=== PATIENT | female | born 1945 | race American Indian/Alaskan Native ===

== ENCOUNTER 2021-03-22 12:45 | Outpatient (CLI) | payer MEDICARE ==
--- NOTE | 2021-03-22 16:38 | MRI Report ---
PROCEDURE: Knee LT W/O INDICATIONS: LEFT KNEE PAIN TECHNIQUE: Noncontrast sagittal PD fast spin echo and T2 fast spin echo with fat saturation, sagittal 3-D gradie nt sequence with fat saturation; coronal T1 spin echo and PD fast spin echo with fat saturation, and axial PD fast spin echo with fat saturation through the knee. COMPARISON: None. FINDINGS: Image quality: Excellent. Menisci: The medial and lateral menisci demonstrate normal morphology and internal signal. The meni scal root ligaments appear intact. Cruciate ligaments: The anterior and posterior cruciate ligaments appear intact. Medial structures: Very low-grade proximal MCL sprain at its femoral insertion is seen. The posterior oblique ligament, semimembranosus tendon insertions, and oblique popliteal ligament, and meniscocaps ular junction appear intact. Visualized portions of the pes anserinus tendons appear normal. No abn ormal bursal fluid. Lateral structures: The lateral collateral ligament, long and short heads of the biceps femoris tend on appear intact. The popliteus tendon appears normal; the popliteofibular ligament appears intact. The posterosuperior and anteroinferior popliteomeniscal fascicles appear intact. The arcuate and fa bellofibular ligaments appear intact, around the lateral inferior geniculate artery. Iliotibial band appears normal. Anterior structures: Distal quadriceps tendinosis at its superior patella insertion is seen. Proximal patella tendinosis at its inferior patella insertion is also seen. Patellar alignment is normal. No femoral trochlear dysplasia or ventral trochlear prominence. No edema in the infrapatellar fat pad. Bones and cartilage: No bone marrow contusions or fractures. Mild to moderate tricompartmental osteo arthritis and chondromalacia more prominent in medial femoral tibial compartment is seen. Joint space: There is small amount of joint fluid. No Zhang's cyst. Normal appearing synovial plic ae are incidentally noted. IMPRESSION: 1. Mild to moderate tricompartmental osteoarthritis and chondromalacia more prominent in medial femor al tibial compartment. No fracture or dislocation. Small joint effusion. 2. Cruciate ligaments are intact. Very low-grade proximal MCL sprain at its femoral insertion. 3. Suggestion of distal quadriceps and proximal patella tendinosis at their respective patella insert ions. No full-thickness tendon rupture. 4. No evidence of focal meniscal tear. Reviewed by: Fredo Bundy MD on 03/22/2021 4:37 PM PDT Approved by: Fredo Bundy MD on 03/22/2021 4:37 PM PDT Station ID: [id number]
== END 2021-03-22 12:46 | disposition home or self-care (01) ==
LOC: DI 12:45
PROVIDERS: ATTEND Orthopaedic Surgery
DX: M17.12 Unilateral primary osteoarthritis, left knee (principal); M94.262 Chondromalacia, left knee; M25.462 Effusion, left knee; S83.412A Sprain of medial collateral ligament of left knee, initial encounter; M67.864 Other specified disorders of tendon, left knee

== ENCOUNTER 2021-09-07 08:00 | Outpatient (CLI) | payer MEDICARE ==
--- NOTE | 2021-09-07 15:59 | XRAY Report ---
PROCEDURE: Lumbar Spine 2 View INDICATIONS: LUMBAR RADICULOPATHY TECHNIQUE: 2 views of the lumbar spine were acquired. COMPARISON: None. FINDINGS: Bones: 5 [id number] vertebrae are present. There is mild grade 1 retrolisthesis of L1 on L2. M ild grade 1 anterolisthesis of L5 on S1. Multilevel disc space narrowing and endplate osteophyte form ation. Mild chronic wedging of L1. Bilateral L5-S1 pars interarticularis defects. Facet hypertrophy t hroughout the mid and lower lumbar spine. No acute vertebral body compression fractures. No suspicio us bony lesions. Soft tissues: Overlying bowel gas pattern is normal. No suspicious soft tissue calcifications. IMPRESSION: 1. Multilevel degenerative disc and facet disease. 2. Grade 1 isthmic spondylolisthesis at L5-S1. 3. Mild chronic L1 compression fracture. 4. No acute fracture. No osseous lesion. If symptoms and/or clinical suspicion for pathology continue , further assessment with repeat plain films, or advanced imaging (e.g., CT, MRI, or bone scan) is re commended for further assessment. Reviewed by: Rajan Dang MD on 09/07/2021 3:58 PM PDT Approved by: Rajan Dang MD on 09/07/2021 3:58 PM PDT Station ID: [id number]
== END 2021-09-07 23:59 ==
LOC: DI.S 08:00
PROVIDERS: ATTEND Emergency Medicine
DX: M47.26 Other spondylosis with radiculopathy, lumbar region (principal); M47.27 Other spondylosis with radiculopathy, lumbosacral region; M51.16 Intervertebral disc disorders with radiculopathy, lumbar region; M43.16 Spondylolisthesis, lumbar region

== ENCOUNTER 2023-03-18 13:00 | Outpatient (CLI) | payer MEDICARE ==
--- NOTE | 2023-03-18 15:47 | XRAY Report ---
PROCEDURE: Wrist 3 View RT INDICATIONS: RIGHT WRIST FRACTURE TECHNIQUE: 3 views of the wrist were acquired. COMPARISON: 03/11/2023 FINDINGS: Bones: Healing minimally displaced distal radius fracture. Similar appearance of minimally displaced ulnar styloid fracture. Mild degenerative changes at the base of the thumb. Soft tissues: No suspicious calcifications. IMPRESSION: Healing distal radius fracture. Unchanged ulnar styloid fracture. Reviewed by: Ho Jerez MD on 03/18/2023 3:45 PM PDT Approved by: Ho Jerez MD on 03/18/2023 3:45 PM PDT Station ID: [id number]
== END 2023-03-18 23:59 | disposition home or self-care (01) ==
LOC: DI.WOS 13:00
PROVIDERS: ATTEND Orthopaedic Surgery
DX: S52.501D Unspecified fracture of the lower end of right radius, subsequent encounter for closed fracture with routine healing (principal); S52.611D Displaced fracture of right ulna styloid process, subsequent encounter for closed fracture with routine healing

== ENCOUNTER 2023-03-27 10:07 | Outpatient (CLI) | payer MEDICARE ==
[2023-03-27 14:59] LABS: THYROID STIMULATING HORMONE < 0.01 uIU/mL (0.34-5.60)
[2023-03-29 20:07] LABS: THYROGLOBULIN ANTIBODY <1.0 IU/mL (0.0-0.9); THYROID PEROXIDASE (TPO) AB 153 IU/mL (0-34)
== END 2023-03-27 10:08 | disposition home or self-care (01) ==
LOC: LAB.S 10:07
PROVIDERS: ATTEND Physician Assistant Medical
DX: E03.9 Hypothyroidism, unspecified (principal)
CPT/HCPCS: 36415; 84439; 84443; 86376; 86800

== ENCOUNTER 2023-04-03 11:12 | Outpatient (CLI) | payer MEDICARE ==
--- NOTE | 2023-04-03 17:13 | XRAY Report ---
PROCEDURE: Wrist 2 View RT INDICATIONS: RIGHT WRIST FRACTURE TECHNIQUE: 2 views of the wrist were acquired. COMPARISON: 03/18/2023 FINDINGS: Bones: Similar alignment of the previously demonstrated distal radius fracture. No substantial bony callus visualized. Soft tissues: No suspicious soft tissue calcifications . IMPRESSION: Similar alignment of the previously demonstrated distal radius fracture. Reviewed by: Hever Andrew MD on 04/03/2023 5:12 PM PDT Approved by: Hever Andrew MD on 04/03/2023 5:12 PM PDT Station ID: [id number]
== END 2023-04-03 23:59 | disposition home or self-care (01) ==
LOC: DI.S 11:12
PROVIDERS: ATTEND Physician Assistant
DX: S52.531D Colles' fracture of right radius, subsequent encounter for closed fracture with routine healing (principal)

== ENCOUNTER 2023-04-17 08:00 | Outpatient (CLI) | payer MEDICARE ==
--- NOTE | 2023-04-17 16:41 | XRAY Report ---
PROCEDURE: Wrist 3 View RT INDICATIONS: RIGHT WRIST FRACTURE TECHNIQUE: 3 views of the wrist were acquired. COMPARISON: 04/03/2023 FINDINGS: Bones: Similar alignment of the previously demonstrated distal radius fracture. Fracture plane remai ns visible. Soft tissues: No suspicious soft tissue calcifications. IMPRESSION: Similar alignment of the previously demonstrated distal radius fracture. Reviewed by: Hever Andrew MD on 04/17/2023 4:40 PM PDT Approved by: Hever Andrew MD on 04/17/2023 4:40 PM PDT Station ID: [id number]
== END 2023-04-17 23:59 | disposition home or self-care (01) ==
LOC: DI.WOS 08:00
PROVIDERS: ATTEND Orthopaedic Surgery
DX: S52.531D Colles' fracture of right radius, subsequent encounter for closed fracture with routine healing (principal)